=== PATIENT | female | born 1950 | race Caucasian/White ===

== ENCOUNTER 2017-07-17 13:14 | Outpatient (CLI) | payer MEDICARE, BC ==
[~2017-07-17 13:14] MED LIST: Gadobenate Dimeglumine 529 MG/1 ML (20ML VIAL) ONE
== END 2017-07-17 13:15 | disposition home or self-care (01) ==
LOC: BICMRI 13:14
PROVIDERS: ATTEND Family Medicine
DX: D35.02 Benign neoplasm of left adrenal gland (principal); K76.0 Fatty (change of) liver, not elsewhere classified; N28.1 Cyst of kidney, acquired; K86.2 Cyst of pancreas
CPT/HCPCS: 74183; 82565; A9579

== ENCOUNTER 2017-10-06 10:51 | Outpatient (CLI) | payer MEDICARE, BC ==
--- NOTE | 2017-10-10 12:42 | MMO ---
BILATERAL SCREENING MAMMOGRAM: HISTORY: A 67-year-old female for screening mammography. COMPARISON: 09/05/2016, 09/02/2015, 08/26/2014 FINDINGS: Bilateral MLO and CC views of the breasts show scattered fibroglandular breast tissue. There is no e vidence of suspicious mass, suspicious cluster of microcalcifications, or area of architectural disto rtion. Interpretation of this mammogram was performed with the assistance of computer aided detection. IMPRESSION: BI-RADS Category 1-Negative. Annual screening mammography is recommended. POS: [facility]
== END 2017-10-06 10:52 | disposition home or self-care (01) ==
LOC: SCSMAMMO 10:51
PROVIDERS: ATTEND Family Medicine
DX: Z12.31 Encounter for screening mammogram for malignant neoplasm of breast (principal)
CPT/HCPCS: 77067

== ENCOUNTER 2018-03-07 13:42 | Outpatient (CLI) | payer MEDICARE, BC ==
--- NOTE | 2018-03-07 14:30 | RAD ---
PA AND LATERAL CHEST: History: Dyspnea. Comparison: 02-25-16 FINDINGS: Heart size is within normal limits. There are post op sternotomy changes noted. Aortic valve stent is noted. Lungs are clear of any infiltrative process. IMPRESSION: No active intrathoracic disease. Stable chest. POS: [facility]
== END 2018-03-07 13:43 | disposition home or self-care (01) ==
LOC: RAD 13:42
PROVIDERS: ATTEND Internal Medicine Pulmonary Disease
DX: R06.00 Dyspnea, unspecified (principal)
CPT/HCPCS: 71046

== ENCOUNTER 2018-05-28 12:37 | Outpatient (CLI) | payer MEDICARE, BC ==
--- NOTE | 2018-05-28 13:12 | RAD ---
PA AND LATERAL VIEWS OF THE CHEST: HISTORY: Dyspnea. FINDINGS: Comparison is made with the exam of 03/07/2018. The heart size is normal. The aorta is tortuous. Changes of median sternotomy are again seen. The lungs are well expanded without lobar consolidation, pneumothoraces, or pleural effusions. Aortic st ent is again seen. IMPRESSION: No evidence of acute cardiopulmonary process. POS: [facility]
== END 2018-05-28 12:38 | disposition home or self-care (01) ==
LOC: RAD 12:37
PROVIDERS: ATTEND Internal Medicine Pulmonary Disease
DX: R06.00 Dyspnea, unspecified (principal)
CPT/HCPCS: 71046

== ENCOUNTER 2018-12-12 08:33 | Outpatient (CLI) | payer MEDICARE, BC ==
[2018-12-12] MEDS ORDERED: ISOVUE-370 76%-LOCM 1 ML ONE (09:46)
--- NOTE | 2018-12-12 11:24 | CT ---
ORBIT CT WITH AND WITHOUT CONTRAST: HISTORY: Left ocular pain. Evaluate for mass. Pain and pressure x6 months. COMPARISON: None. FINDINGS: Visualized brain parenchyma demonstrates appropriate brain volume. No pathologic enhancement. No obvi ous parenchymal masses. Visualized calvarium is intact. Adequate aeration of the visualized paranasal sinuses and mastoid air cells. Coronal images demonstrate patent bilateral ostiomeatal complexes. Nasal septum is intact and midline . The osseous margins of the sinuses, visualized facial bones and the osseous margins of the orbits are intact. Bilateral ocular lenses are appropriately located. Both globes are intact. Retrobulbar fat is preserv ed. Symmetric attenuation of the optic nerves and ocular rectus muscles. Symmetric lacrimal glands. No abnormal enhancement in the intraconal fat or a extraconal fat bilaterally. No evidence of a cavernous carotid fistula. Superior ophthalmic veins appear to be symmetric. Bilateral pterygopalatine fossa is are unremarkable. Visualized upper airway/soft tissue neck is also unremarkable. IMPRESSION: Unremarkable pre- and postcontrast Orbit MRI. No evidence of mass. Transcribed Date/Time: 12/12/2018 11:58 AM
== END 2018-12-12 08:34 | disposition home or self-care (01) ==
LOC: BICCT 08:33
PROVIDERS: ATTEND Ophthalmology
DX: H57.12 Ocular pain, left eye (principal)
CPT/HCPCS: 70482; 82565; Q9966

== ENCOUNTER 2019-01-14 13:48 | Outpatient (CLI) | payer MEDICARE, BC | END 2019-01-14 13:49 | disposition home or self-care (01) | LOC: DTY/OP 13:48 | PROVIDERS: ATTEND Family Medicine | DX: E11.9 Type 2 diabetes mellitus without complications (principal) | CPT/HCPCS: 97802 ==

== ENCOUNTER 2020-05-14 10:35 | Outpatient (CLI) | payer MEDICARE, BC | END 2020-05-14 10:36 | disposition home or self-care (01) | LOC: BICMAMMO 10:35 | PROVIDERS: ATTEND Family Medicine | DX: Z12.31 Encounter for screening mammogram for malignant neoplasm of breast (principal); Z85.41 Personal history of malignant neoplasm of cervix uteri | CPT/HCPCS: 77063; 77067 ==

== ENCOUNTER 2020-05-28 08:09 | Outpatient (CLI) | payer MEDICARE, BC | END 2020-05-28 08:10 | disposition home or self-care (01) | LOC: BICULT 08:09 | PROVIDERS: ATTEND Family Medicine | DX: R10.13 Epigastric pain (principal); R10.11 Right upper quadrant pain; K76.0 Fatty (change of) liver, not elsewhere classified; K83.8 Other specified diseases of biliary tract | CPT/HCPCS: 93975 ==

== ENCOUNTER 2021-02-22 12:21 | Observation (INO) | payer MEDICARE, BC ==
[~2021-02-22 12:21] MED LIST changes: -Gadobenate Dimeglumine 529 MG/1 ML (20ML VIAL) ONE; +Iopamidol-370 76% 500 ML 1 ML ONE
[2021-02-22 14:36] LABS: #Basophils 0.1 thou/uL (0.0-0.2); #Eosinphils 0.1 thou/uL (0.0-0.7); #Lymphocytes 1.3 thou/uL (1.20-3.40); #Monocytes 0.6 thou/uL (0.11-0.59); %Basophils 0.3 % (0.0-1.0); %Eosinophils 0.4 % (0.0-10.0); %Lymphocytes 7.2 % (21.0-51.0); %Neutrophils 89.1 % (42.0-75.0); Mean Corpuscular HGB CONC 31.3 g/dL (32.0-36.0); Mean Corpuscular Hemoglobin 25.4 pg (27.0-31.0); Mean Corpuscular Volume 80.9 fL (78.0-98.0); Mean Platelet Volume 7.3 fL (7.4-10.4); Platelet Count 552 thou/uL (130-400); RBC Distribution Width 14.2 % (11.5-14.5); Red Blood Cell (RBC) Count 3.94 mill/uL (4.20-5.40)
[2021-02-22] MEDS ORDERED: Aspirin Chewable 81 MG TAB ONE (14:42)
[2021-02-22 15:01] LABS: ALT (SGPT) 14 U/L (8-55); AST (SGOT) 11 U/L (5-34); Albumin 3.8 g/dL (3.4-4.8); Alkaline Phosphatase 88 U/L (40-110); Anion Gap 14 mmol/L (10-20); BUN (Urea Nitrogen) 20 mg/dL (9.8-20.1); Bilirubin, Total 0.4 mg/dL (0.2-1.2); Calc. Creatinine Clearance 0 mL/min (70-130); Calcium 9.3 mg/dL (7.8-10.44); Carbon Dioxide 21 mmol/L (23-31); Chloride 101 mmol/L (98-107); Globulin 3.7 g/dL (2.4-3.5); Glucose 238 mg/dL (80-115); Lipase 27 U/L (8-78); Potassium 4.2 mmol/L (3.5-5.1); Protein, Total 7.5 g/dL (5.8-8.1); Sodium 132 mmol/L (136-145)
[2021-02-22 15:28] LABS: Bilirubin Negative (Negative); Blood, Urine Negative (Negative); Clarity Clear (Clear); Glucose, Urine (Dipstick) Normal (Negative); Ketone, Urine Negative (Negative); Leukocyte Negative Leu/uL (Negative); Nitrite Negative (Negative); Protein, Urine (Dipstick) 10 mg/dL (Neg-Trace); Specific Gravity, Urine 1.016 (1.002-1.036); Urobilinogen Normal mg/dL (Less than 2); pH, Urine 5.5 (5.0-9.0)
[2021-02-22 15:30] LABS: SARS-CoV-2 NAA Rapid Test Not Detected (NotDetected)
[2021-02-23] MEDS ORDERED: Acetaminophen 325 MG TAB ONE (01:55)
[2021-02-23] MEDS ORDERED: Ondansetron PF 4 MG/2 ML Vial IVP PRN ×2 (02:30→09:32)
[2021-02-23] MEDS ORDERED: Acetaminophen 325 MG TAB PO PRN ×2 (02:30→09:32)
[2021-02-23] MEDS ORDERED: Ondansetron ODT 4 MG TAB SL PRN (02:30)
[2021-02-23] MEDS ORDERED: HumaLOG 300 UNITS/3 ML VIAL SC PRN ×3 (07:21→09:32)
[2021-02-23] MEDS ORDERED: Dextrose 5% in Water 1,000 ML IV PRN ×2 (07:21→09:32)
[2021-02-23] MEDS ORDERED: Dextrose 50% Abboject 50 ML SYRINGE SLOW IVP PRN ×2 (07:21→09:32)
[2021-02-23] MEDS ORDERED: Aspirin Chewable 81 MG TAB ONE (08:50)
[2021-02-23] MEDS ORDERED: Clopidogrel Bisulfate 75 MG TAB ONE (08:50)
[2021-02-23] MEDS ORDERED: Enoxaparin Sodium 40 MG/0.4 ML SYRINGE ONE (08:51)
[2021-02-23] MEDS ORDERED: Famotidine 20 MG TAB ONE (08:51)
[2021-02-23] MEDS ORDERED: Digoxin 0.25 MG TAB ONE (08:51)
[2021-02-23] MEDS ORDERED: Enoxaparin Sodium 40 MG/0.4 ML SYRINGE SC SCH ×2 (09:00→10:00)
[2021-02-23] MEDS ORDERED: Atorvastatin Calcium 10 MG TAB PO SCH (09:00)
[2021-02-23] MEDS ORDERED: Clopidogrel Bisulfate 75 MG TAB PO SCH (09:00)
[2021-02-23] MEDS ORDERED: hydrALAZINE 25 MG TAB PO PRN (09:32)
[2021-02-23] MEDS ORDERED: HYDROcodone/Acetaminophen 5/325 mg Tablet PO PRN (09:32)
[2021-02-23] MEDS ORDERED: Ondansetron ODT 4 MG TAB PO PRN (09:32)
[2021-02-23] MEDS ORDERED: predniSONE 20 MG TAB PO SCH (09:45)
[2021-02-23] MEDS ORDERED: Nicotine 14 MG PATCH TD PRN (10:00)
[2021-02-23] MEDS: Digoxin 0.25 MG TAB PO SCH (10:46)
[2021-02-23] MEDS: Famotidine 20 MG TAB PO SCH ×2 (10:47→20:42)
[2021-02-23] MEDS: Diltiazem HCl SR 60 mg Capsule PO SCH ×2 (10:47→20:40)
[2021-02-23] MEDS ORDERED: predniSONE 20 MG TAB ONE ×2 (12:18)
[2021-02-23] MEDS: Aspirin Chewable 81 MG TAB PO SCH (12:23)
[2021-02-23 12:48] VITALS: BMI 33.7
[2021-02-23] MEDS: HumaLOG 300 UNITS/3 ML VIAL SC PRN (17:28)
[2021-02-23] MEDS ORDERED: Mometasone 100 MCG/Formoterol 5 MCG 120 PUFF INHALER INH SCH (18:30)
[2021-02-23] MEDS ORDERED: Atorvastatin Calcium 40 MG TAB PO SCH (21:00)
[2021-02-24] MEDS ORDERED: HumaLOG 300 UNITS/3 ML VIAL SC SCH (00:15)
[2021-02-24] MEDS: HumaLOG 300 UNITS/3 ML VIAL SC PRN ×2 (05:22→11:22)
[2021-02-24 05:28] LABS: #Basophils 0.3 thou/uL (0.0-0.2); #Lymphocytes 1.8 thou/uL (1.20-3.40); #Monocytes 0.9 thou/uL (0.11-0.59); #Neutrophils 11.2 thou/uL (1.40-6.50); %Basophils 2.3 % (0.0-1.0); %Eosinophils 0.2 % (0.0-10.0); %Lymphocytes 12.6 % (21.0-51.0); %Neutrophils 78.9 % (42.0-75.0); Mean Corpuscular HGB CONC 31.9 g/dL (32.0-36.0); Mean Corpuscular Hemoglobin 25.9 pg (27.0-31.0); Mean Corpuscular Volume 81.2 fL (78.0-98.0); Mean Platelet Volume 7.6 fL (7.4-10.4); Platelet Count 455 thou/uL (130-400); RBC Distribution Width 14.1 % (11.5-14.5); Red Blood Cell (RBC) Count 3.46 mill/uL (4.20-5.40); White Blood Cell (WBC) Count 14.1 thou/uL (4.8-10.8)
[2021-02-24 05:50] LABS: Anion Gap 13 mmol/L (10-20); BUN (Urea Nitrogen) 16 mg/dL (9.8-20.1); Calc. Creatinine Clearance 87 mL/min (70-130); Calcium 8.8 mg/dL (7.8-10.44); Carbon Dioxide 21 mmol/L (23-31); Chloride 102 mmol/L (98-107); Glucose 301 mg/dL (80-115); Sodium 132 mmol/L (136-145)
[2021-02-24] MEDS ORDERED: Icosapent Ethyl 1 GM CAPSULE PO SCH (08:00)
[2021-02-24] MEDS ORDERED: metFORMIN 500 MG TAB PO SCH (08:00)
[2021-02-24] MEDS ORDERED: Potassium Chloride 20 MEQ TAB PO SCH (08:00)
[2021-02-24 08:04] VITALS: TEMP 98
[2021-02-24] MEDS ORDERED: Losartan 25 MG TAB PO SCH (09:00)
[2021-02-24] MEDS ORDERED: Enoxaparin Sodium 40 MG/0.4 ML SYRINGE SC SCH (09:00)
[2021-02-24] MEDS ORDERED: Clopidogrel Bisulfate 75 MG TAB PO SCH (09:00)
[2021-02-24] MEDS ORDERED: predniSONE 20 MG TAB PO SCH (09:00)
[2021-02-24] MEDS ORDERED: Furosemide 20 MG TAB PO SCH (09:00)
[2021-02-24] MEDS: Diltiazem HCl SR 60 mg Capsule PO SCH (09:28)
[2021-02-24] MEDS: Aspirin Chewable 81 MG TAB PO SCH (09:28)
[2021-02-24] MEDS: Famotidine 20 MG TAB PO SCH (09:29)
[2021-02-24] MEDS: Digoxin 0.25 MG TAB PO SCH (09:30)
[2021-02-24 12:25] VITALS: BP 121/67
== END 2021-02-24 14:30 | disposition home or self-care (01) ==
LOC: ERS 12:21 → INTOOBSV 16:10 → ERHOLD 16:10 → 2NO 02-23 16:12
PROVIDERS: ADMIT Internal Medicine; ATTEND Internal Medicine
DX: J20.9 Acute bronchitis, unspecified (principal); R91.8 Other nonspecific abnormal finding of lung field; J44.1 Chronic obstructive pulmonary disease with (acute) exacerbation; J96.20 Acute and chronic respiratory failure, unspecified whether with hypoxia or hypercapnia; E11.51 Type 2 diabetes mellitus with diabetic peripheral angiopathy without gangrene; I11.0 Hypertensive heart disease with heart failure; I50.9 Heart failure, unspecified; F17.210 Nicotine dependence, cigarettes, uncomplicated; E78.5 Hyperlipidemia, unspecified; I25.10 Atherosclerotic heart disease of native coronary artery without angina pectoris; G40.909 Epilepsy, unspecified, not intractable, without status epilepticus; E66.9 Obesity, unspecified; Z68.33 Body mass index [BMI] 33.0-33.9, adult; Z86.73 Personal history of transient ischemic attack (TIA), and cerebral infarction without residual deficits; Z79.02 Long term (current) use of antithrombotics/antiplatelets; Z79.82 Long term (current) use of aspirin; Z79.84 Long term (current) use of oral hypoglycemic drugs; Z79.899 Other long term (current) drug therapy; Z88.8 Allergy status to other drugs, medicaments and biological substances; Z95.2 Presence of prosthetic heart valve; Z95.5 Presence of coronary angioplasty implant and graft; Z20.822 Contact with and (suspected) exposure to COVID-19
CPT/HCPCS: 0240U; 36415; 36416; 71045; 71260; 80048; 80053; 81003; 83690; 83880; 84484; 85025; 93005; 94640; 94760; J1650; J1815; J1956; J7512; J7620; Q9967

== ENCOUNTER 2021-02-26 14:35 | Outpatient (CLI) | payer MEDICARE, BC ==
[2021-02-26 23:50] LABS: SARS-CoV-2 PCR by NAA Not Detected (NotDetected)
== END 2021-02-26 14:36 | disposition home or self-care (01) ==
LOC: LABBT 14:35
PROVIDERS: ATTEND Internal Medicine Critical Care Medicine
DX: Z01.812 Encounter for preprocedural laboratory examination (principal); Z20.822 Contact with and (suspected) exposure to COVID-19
CPT/HCPCS: U0003; U0005

== ENCOUNTER 2021-03-02 08:31 | Day surgery (SDC) | payer MEDICARE, BC ==
[2021-02-26 14:27] VITALS: BMI 34.7
[2021-03-02 09:02] LABS: PTT 26.7 sec (22.9-36.1); Prothrombin Time 12.8 sec (12.0-14.7)
[2021-03-02 09:44] VITALS: BP 127/70; TEMP 98
== END 2021-03-02 14:20 | disposition home or self-care (01) ==
LOC: CT 08:31
PROVIDERS: ATTEND Internal Medicine Critical Care Medicine
PROC: 0BBG3ZX Excision of Left Upper Lung Lobe, Percutaneous Approach, Diagnostic (ICD-10-PCS; principal; 2021-03-02)
DX: C34.12 Malignant neoplasm of upper lobe, left bronchus or lung (principal); I10 Essential (primary) hypertension; J44.9 Chronic obstructive pulmonary disease, unspecified; E11.51 Type 2 diabetes mellitus with diabetic peripheral angiopathy without gangrene; E78.5 Hyperlipidemia, unspecified; I25.10 Atherosclerotic heart disease of native coronary artery without angina pectoris; G40.909 Epilepsy, unspecified, not intractable, without status epilepticus; F17.210 Nicotine dependence, cigarettes, uncomplicated; K21.9 Gastro-esophageal reflux disease without esophagitis; E66.9 Obesity, unspecified; Z68.34 Body mass index [BMI] 34.0-34.9, adult; Z86.73 Personal history of transient ischemic attack (TIA), and cerebral infarction without residual deficits; Z79.02 Long term (current) use of antithrombotics/antiplatelets; Z79.82 Long term (current) use of aspirin; Z79.84 Long term (current) use of oral hypoglycemic drugs; Z79.899 Other long term (current) drug therapy; Z88.8 Allergy status to other drugs, medicaments and biological substances; Z95.2 Presence of prosthetic heart valve; Z95.5 Presence of coronary angioplasty implant and graft
CPT/HCPCS: 32408; 77002; 85610; 85730; 88305; 88333; 88341; 88342

== ENCOUNTER 2021-03-18 08:00 | Outpatient (CLI) | payer MEDICARE, BC | END 2021-03-18 08:01 | disposition home or self-care (01) | LOC: PET 08:00 | PROVIDERS: ATTEND Internal Medicine Critical Care Medicine | DX: C34.12 Malignant neoplasm of upper lobe, left bronchus or lung (principal); C77.1 Secondary and unspecified malignant neoplasm of intrathoracic lymph nodes; R91.1 Solitary pulmonary nodule | CPT/HCPCS: 78815; A9552 ==

== ENCOUNTER 2021-04-02 13:21 | Outpatient (CLI) | payer MEDICARE, BC | END 2021-04-02 13:22 | disposition home or self-care (01) | LOC: SCSMRI 13:21 | PROVIDERS: ATTEND Internal Medicine Hematology & Oncology | DX: C34.12 Malignant neoplasm of upper lobe, left bronchus or lung (principal) | CPT/HCPCS: 70553 ==

== ENCOUNTER 2021-08-15 00:07 | Emergency (ER) | payer MEDICARE, BC ==
[2021-08-15 00:59] LABS: #Eosinphils 0.3 thou/uL (0.0-0.7); #Lymphocytes 0.8 thou/uL (1.20-3.40); #Monocytes 0.9 thou/uL (0.11-0.59); #Neutrophils 7.1 thou/uL (1.40-6.50); %Eosinophils 3.4 % (0.0-10.0); %Lymphocytes 8.3 % (21.0-51.0); %Monocytes 9.6 % (0.0-10.0); %Neutrophils 78.7 % (42.0-75.0); Hemoglobin 11.2 g/dL (12.0-16.0); Mean Corpuscular HGB CONC 32.7 g/dL (32.0-36.0); Mean Corpuscular Hemoglobin 31.7 pg (27.0-31.0); Mean Corpuscular Volume 97.2 fL (78.0-98.0); Mean Platelet Volume 7.2 fL (7.4-10.4); Platelet Count 347 thou/uL (130-400); RBC Distribution Width 16.4 % (11.5-14.5); Red Blood Cell (RBC) Count 3.54 mill/uL (4.20-5.40)
[2021-08-15 01:23] LABS: ALT (SGPT) 10 U/L (8-55); AST (SGOT) 11 U/L (5-34); Albumin 3.8 g/dL (3.4-4.8); Alkaline Phosphatase 100 U/L (40-110); Anion Gap 10 mmol/L (10-20); BUN (Urea Nitrogen) 10 mg/dL (9.8-20.1); Bilirubin, Total 0.3 mg/dL (0.2-1.2); Calc. Creatinine Clearance 0 mL/min (70-130); Calcium 9.6 mg/dL (7.8-10.44); Carbon Dioxide 27 mmol/L (23-31); Chloride 103 mmol/L (98-107); Estimated GFR 75; Globulin 3.9 g/dL (2.4-3.5); Glucose 174 mg/dL (83-110); Potassium 3.4 mmol/L (3.5-5.1); Protein, Total 7.7 g/dL (5.8-8.1); Sodium 137 mmol/L (136-145)
[2021-08-15 01:43] LABS: CKMB 0.8 ng/mL (0-6.6)
[2021-08-15] MEDS ORDERED: Potassium Chloride 20 MEQ TAB ONE (02:51)
== END 2021-08-15 04:50 | disposition short-term general hospital (02) ==
LOC: ERS 00:07
DX: R07.9 Chest pain, unspecified (principal); R04.2 Hemoptysis; R79.89 Other specified abnormal findings of blood chemistry; E87.6 Hypokalemia; F17.210 Nicotine dependence, cigarettes, uncomplicated; I25.10 Atherosclerotic heart disease of native coronary artery without angina pectoris; I10 Essential (primary) hypertension; E11.9 Type 2 diabetes mellitus without complications; Z79.899 Other long term (current) drug therapy; Z79.4 Long term (current) use of insulin; Z79.84 Long term (current) use of oral hypoglycemic drugs; Z79.01 Long term (current) use of anticoagulants
CPT/HCPCS: 36415; 71045; 80053; 82553; 84484; 85025; 93005

== ENCOUNTER 2022-04-13 09:57 | Day surgery (SDC) | payer MEDICARE, BC ==
[2022-04-11 12:11] VITALS: BMI 28.1
[2022-04-13] MEDS ORDERED: Midazolam HCl 2 mg/2 ml Vial ONE (11:58)
[2022-04-13] MEDS ORDERED: Ketamine 50 MG/ML (10ML VIAL) ONE (11:58)
[2022-04-13] MEDS ORDERED: Lidocaine 1% PF 5 ML VIAL ONE (11:59)
[2022-04-13] MEDS ORDERED: PROPOFOL 200 MG/20 ML VIAL ONE (11:59)
[2022-04-13] MEDS ORDERED: Ipratropium/Albuterol 3 ML NEB ONE (13:11)
== END 2022-04-13 14:53 | disposition home or self-care (01) ==
LOC: SDC 09:57
PROVIDERS: ATTEND Internal Medicine Gastroenterology
PROC: 0W3P8ZZ Control Bleeding in Gastrointestinal Tract, Via Natural or Artificial Opening Endoscopic (ICD-10-PCS; principal; 2022-04-13)
PROC: 0DBL8ZX Excision of Transverse Colon, Via Natural or Artificial Opening Endoscopic, Diagnostic (ICD-10-PCS; 2022-04-13)
PROC: 0W3P8ZZ Control Bleeding in Gastrointestinal Tract, Via Natural or Artificial Opening Endoscopic (ICD-10-PCS; 2022-04-13)
DX: K31.819 Angiodysplasia of stomach and duodenum without bleeding (principal); D12.3 Benign neoplasm of transverse colon; K55.20 Angiodysplasia of colon without hemorrhage; D50.9 Iron deficiency anemia, unspecified; R13.10 Dysphagia, unspecified; E78.00 Pure hypercholesterolemia, unspecified; G47.30 Sleep apnea, unspecified; I25.10 Atherosclerotic heart disease of native coronary artery without angina pectoris; I10 Essential (primary) hypertension; I48.91 Unspecified atrial fibrillation; E11.51 Type 2 diabetes mellitus with diabetic peripheral angiopathy without gangrene; I69.351 Hemiplegia and hemiparesis following cerebral infarction affecting right dominant side; C34.90 Malignant neoplasm of unspecified part of unspecified bronchus or lung; Z86.010 Personal history of colon polyps; Z86.711 Personal history of pulmonary embolism; Z87.891 Personal history of nicotine dependence; Z79.01 Long term (current) use of anticoagulants; Z79.84 Long term (current) use of oral hypoglycemic drugs; Z79.899 Other long term (current) drug therapy; Z88.8 Allergy status to other drugs, medicaments and biological substances; Z95.3 Presence of xenogenic heart valve
CPT/HCPCS: 88305; J2250; J7620

== ENCOUNTER 2022-05-06 21:50 | Observation (INO) | payer MEDICARE, BC ==
[2022-05-06 23:21] LABS: #Basophils 0.1 thou/uL (0.0-0.2); #Eosinphils 0.2 thou/uL (0.0-0.7); #Lymphocytes 1.4 thou/uL (1.20-3.40); #Monocytes 0.7 thou/uL (0.11-0.59); #Neutrophils 4.4 thou/uL (1.40-6.50); %Basophils 1.3 % (0.0-1.0); %Eosinophils 2.5 % (0.0-10.0); %Lymphocytes 21.2 % (21.0-51.0); %Neutrophils 65.1 % (42.0-75.0); Hemoglobin 11.5 g/dL (12.0-16.0); Mean Corpuscular HGB CONC 32.2 g/dL (32.0-36.0); Mean Platelet Volume 8.1 fL (7.4-10.4); Platelet Count 284 10x3/uL (130-400); RBC Distribution Width 19.1 % (11.5-14.5); Red Blood Cell (RBC) Count 3.97 mill/uL (4.20-5.40); White Blood Cell (WBC) Count 6.8 10x3/uL (4.8-10.8)
[2022-05-06 23:46] LABS: ALT (SGPT) 13 U/L (8-55); AST (SGOT) 15 U/L (5-34); Albumin 3.8 g/dL (3.4-4.8); Alkaline Phosphatase 89 U/L (40-110); Anion Gap 12 mmol/L (10-20); BUN (Urea Nitrogen) 17 mg/dL (9.8-20.1); Bilirubin, Total 0.2 mg/dL (0.2-1.2); Calc. Creatinine Clearance 0 mL/min (70-130); Calcium 9.5 mg/dL (7.8-10.44); Carbon Dioxide 25 mmol/L (23-31); Chloride 105 mmol/L (98-107); Estimated GFR 72; Globulin 3.8 g/dL (2.4-3.5); Glucose 164 mg/dL (83-110); Lipase 34 U/L (8-78); Magnesium 2.2 mg/dL (1.6-2.6); Potassium 4.2 mmol/L (3.5-5.1); Protein, Total 7.6 g/dL (5.8-8.1); Sodium 138 mmol/L (136-145)
[2022-05-07 06:18] LABS: Troponin I Less than 0.010 ng/mL (< 0.028)
[2022-05-07] MEDS ORDERED: Dextrose 5% in Water 1,000 ML IV PRN (08:07)
[2022-05-07] MEDS ORDERED: HumaLOG 300 UNITS/3 ML VIAL SC PRN ×2 (08:07)
[2022-05-07] MEDS ORDERED: Acetaminophen 325 MG TAB PO PRN (08:07)
[2022-05-07] MEDS ORDERED: Ondansetron PF 4 MG/2 ML Vial IVP PRN (08:07)
[2022-05-07] MEDS ORDERED: Dextrose 50% Abboject 50 ML SYRINGE SLOW IVP PRN (08:07)
[2022-05-07] MEDS ORDERED: Nitroglycerin 0.4 MG TAB (25 Tab Bottle) SL PRN (08:07)
[2022-05-07] MEDS ORDERED: Lorazepam 0.5 MG TAB PO PRN (08:11)
[2022-05-07 10:00] LABS: Troponin I Less than 0.010 ng/mL (< 0.028)
[2022-05-07] MEDS ORDERED: Famotidine 20 MG TAB ONE (10:33)
[2022-05-07] MEDS: Famotidine 20 MG TAB PO SCH (10:40)
[2022-05-07] MEDS: Apixaban 5 MG TAB PO SCH ×2 (10:44→21:05)
[2022-05-07] MEDS: Varenicline Tartrate 0.5 MG TAB PO SCH (10:44)
[2022-05-07] MEDS: Digoxin 0.125 MG TAB PO SCH (11:16)
[2022-05-07] MEDS ORDERED: Iopamidol-370 76% 500 ML MDV (1 ML CHARGE) ONE (14:45)
[2022-05-07 15:59] VITALS: BMI 28.4
[2022-05-07] MEDS: Ipratropium/Albuterol 3 ML NEB NEB SCH ×2 (16:51→18:20)
[2022-05-07] MEDS: Mometasone 100 MCG/PUFF (1 INHALER) INH SCH (18:20)
[2022-05-07] MEDS ORDERED: Atorvastatin Calcium 40 MG TAB PO SCH (21:00)
[2022-05-08] MEDS: Ipratropium/Albuterol 3 ML NEB NEB SCH ×3 (01:10→12:59)
[2022-05-08 05:20] LABS: #Basophils 0.1 thou/uL (0.0-0.2); #Eosinphils 0.2 thou/uL (0.0-0.7); #Lymphocytes 1.2 thou/uL (1.20-3.40); #Monocytes 0.6 thou/uL (0.11-0.59); #Neutrophils 3.8 thou/uL (1.40-6.50); %Basophils 1.2 % (0.0-1.0); %Eosinophils 2.9 % (0.0-10.0); %Lymphocytes 20.2 % (21.0-51.0); %Monocytes 10.2 % (0.0-10.0); %Neutrophils 65.5 % (42.0-75.0); Hemoglobin 10.6 g/dL (12.0-16.0); Mean Corpuscular HGB CONC 31.7 g/dL (32.0-36.0); Mean Corpuscular Hemoglobin 28.8 pg (27.0-31.0); Mean Corpuscular Volume 90.7 fl (78.0-98.0); Platelet Count 241 10x3/uL (130-400); RBC Distribution Width 19.1 % (11.5-14.5); White Blood Cell (WBC) Count 5.8 10x3/uL (4.8-10.8)
[2022-05-08 05:40] LABS: Anion Gap 10 mmol/L (10-20); BUN (Urea Nitrogen) 13 mg/dL (9.8-20.1); Calc. Creatinine Clearance 69 mL/min (70-130); Calcium 8.9 mg/dL (7.8-10.44); Carbon Dioxide 25 mmol/L (23-31); Chloride 107 mmol/L (98-107); Estimated GFR 67; Glucose 145 mg/dL (83-110); Potassium 4.2 mmol/L (3.5-5.1); Sodium 138 mmol/L (136-145)
[2022-05-08] MEDS: Mometasone 100 MCG/PUFF (1 INHALER) INH SCH (08:00)
[2022-05-08] MEDS: Varenicline Tartrate 0.5 MG TAB PO SCH (08:03)
[2022-05-08] MEDS: Famotidine 20 MG TAB PO SCH (08:03)
[2022-05-08] MEDS ORDERED: Regadenoson 0.4 MG/5 ML SYRINGE ONE (11:03)
[2022-05-08] MEDS: Apixaban 5 MG TAB PO SCH (12:16)
[2022-05-08] MEDS: Digoxin 0.125 MG TAB PO SCH (12:16)
[2022-05-08 12:47] VITALS: BP 113/58; TEMP 98.5
[2022-05-08] MEDS ORDERED: Diclofenac 1% 100 GM GEL TP SCH (13:00)
== END 2022-05-08 16:21 | disposition home or self-care (01) ==
LOC: ERS 21:50 → ERHOLD 05-07 05:26 → 2SW 05-07 16:12
PROVIDERS: ADMIT Family Medicine; ATTEND Family Medicine
DX: R07.89 Other chest pain (principal); C34.12 Malignant neoplasm of upper lobe, left bronchus or lung; E11.51 Type 2 diabetes mellitus with diabetic peripheral angiopathy without gangrene; I48.91 Unspecified atrial fibrillation; E78.5 Hyperlipidemia, unspecified; I11.0 Hypertensive heart disease with heart failure; I50.9 Heart failure, unspecified; J44.9 Chronic obstructive pulmonary disease, unspecified; F17.210 Nicotine dependence, cigarettes, uncomplicated; E27.8 Other specified disorders of adrenal gland; I44.0 Atrioventricular block, first degree; Z86.711 Personal history of pulmonary embolism; Z86.73 Personal history of transient ischemic attack (TIA), and cerebral infarction without residual deficits; Z92.21 Personal history of antineoplastic chemotherapy; Z92.3 Personal history of irradiation; Z79.01 Long term (current) use of anticoagulants; Z79.84 Long term (current) use of oral hypoglycemic drugs; Z79.899 Other long term (current) drug therapy; Z88.8 Allergy status to other drugs, medicaments and biological substances; Z95.3 Presence of xenogenic heart valve; Z95.820 Peripheral vascular angioplasty status with implants and grafts
CPT/HCPCS: 71045; 71275; 78452; 80048; 80053; 82962 ×2; 83690; 83735; 84484 ×3; 85025 ×2; 93005; 93017; 94640; 99285; A9500; G0378 ×3; 36415; 36416; J1815; J2785; J7620; Q9967